=== PATIENT | female | born 1980 | race Caucasian/White ===

== ENCOUNTER 2018-08-17 07:09 | Emergency (ER) | payer SELFPAY ==
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
[2018-08-17] MEDS ORDERED: HYDROCODONE/APAP 5/325 MG TAB ONE (08:51)
[2018-08-17] MEDS ORDERED: ACETAMINOPHEN 500 MG TAB ONE (08:54)
[2018-08-17 09:56] LABS: Urine Blood 1+ (NEG); Urine Glucose NEGATIVE (NEG); Urine Protein NEGATIVE (NEG); Urine Specific Gravity 1.015 (1.005-1.030); Urine pH 6.5 (5.0-7.0)
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
== END 2018-08-17 11:15 | disposition home or self-care (01) ==
LOC: ER 07:09
DX: M54.9 Dorsalgia, unspecified (principal); M54.2 Cervicalgia; V49.49XA Driver injured in collision with other motor vehicles in traffic accident, initial encounter; I10 Essential (primary) hypertension
CPT/HCPCS: 36415; 70450; 71260; 72125; 74177; 81003; 81025; 99285; Q9967

== ENCOUNTER 2022-04-07 13:30 | Emergency (ER) | payer OTHER ==
[2022-04-07 14:58] LABS: SARS-COV-2 RT PCR NEGATIVE (NEGATIVE)
--- NOTE | 2022-04-07 15:47 | RAD REPORT ---
EXAM DESCRIPTION: Alex Single View04/07/2022 2:34 pm CLINICAL HISTORY: Congestion COMPARISON: 2014 FINDINGS: The lungs appear clear of acute infiltrate. The heart is normal size IMPRESSION: No acute abnormalities displayed
[2022-04-07] MEDS ORDERED: METHYLPREDNISOLONE 125 MG INJ ONE (15:54)
--- NOTE | 2022-04-07 15:54 | EDPHYS ---
Physician Documentation [facility] Name: Sharon Schafer Age: 41 yrs Sex: Female : 1980 Arrival Date: 04/07/2022 Time: 13:31 Bed 12 Private MD: ED Physician Austin Murillo HPI: 04/07 15:53 This 41 yrs old Female presents to ER via Ambulatory with complaints of Cough, kb Fever, Congestion, Chest Pain, Back Pain. 15:53 The patient or guardian reports cough, that is intermittent, described as moderate, flu kb symptoms, low-grade fever, myalgias. Onset: The symptoms/episode began/occurred 5 day(s) ago. Severity of symptoms: At their worst the symptoms were moderate, in the emergency department the symptoms are unchanged. Modifying factors: The symptoms are alleviated by nothing, the symptoms are aggravated by nothing. Associated signs and symptoms: Pertinent positives: fever, rhinorrhea, Pertinent negatives: chest pain, diarrhea, ear ache, nausea, vomiting. The patient has not experienced similar symptoms in the past. The patient has not recently seen a physician. Pt reports cough, congestion, fever since . 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 - Social history:: Smoking status: Patient denies any tobacco usage or history of. ROS: 15:51 Cardiovascular: Negative for chest pain, palpitations, and edema. kb 15:51 Constitutional: Positive for body aches, chills, fatigue, fever, malaise. 15:51 ENT: Positive for rhinorrhea, sinus congestion. 15:51 Respiratory: Positive for cough. 15:51 All other systems are negative. Exam: 15:51 Constitutional: This is a well developed, well nourished patient who is awake, alert, kb and in no acute distress. Head/Face: Normocephalic, atraumatic. ENT: Moist Mucous membranes Cardiovascular: Regular rate and rhythm with a normal S1 and S2. No gallops, murmurs, or rubs. No pulse deficits. Respiratory: Respirations even and unlabored. No increased work of breathing. Talking in full sentences Abdomen/GI: Soft, non-tender. No distention Skin: Warm, dry with normal turgor. Normal color. MS/ Extremity: Pulses equal, no cyanosis. Neurovascular intact. Full, normal range of motion. Neuro: Awake and alert, GCS 15, oriented to person, place, time, and situation. Moves all extremities. Normal gait. Psych: Awake, alert, with orientation to person, place and time. Behavior, mood, and affect are within normal limits. Vital Signs: 14:01 BP 139 / 94; Pulse 105; Resp 17; Temp 99.2; Pulse Ox 96% ; Weight 93.89 kg; Height 5 jl7 ft. 1 in. (154.94 cm); Pain 8/10; 16:02 BP 134 / 88; Pulse 101; Pulse Ox 97% on R/A; ko1 14:01 Body Mass Index 39.11 (93.89 kg, 154.94 cm) jl7 MDM: 15:02 Patient medically screened. kb 15:51 Data reviewed: vital signs, nurses notes. Data interpreted: Pulse oximetry: on room air kb is 96 %. Interpretation: normal. Counseling: I had a detailed discussion with the patient and/or guardian regarding: the historical points, exam findings, and any diagnostic results supporting the discharge/admit diagnosis, lab results, radiology results, the need for outpatient follow up, a family practitioner, to return to the emergency department if symptoms worsen or persist or if there are any questions or concerns that arise at home. 04/07 14:01 Order name: COVID-19/FLU A+B; Complete Time: 15:00 jl7 04/07 14:01 Order name: XRAY Chest (1 view); Complete Time: 15:51 jl7 Administered Medications: 15:56 Drug: SOLU-Medrol (methylPREDNISolone sodium succinate) 125 mg Route: IM; Site: right ko1 gluteus; 16:23 Follow up: Response: No adverse reaction ko1 Disposition: 17:14 Co-signature as Attending Physician, Austin Murillo MD I agree with the assessment and kdr plan of care. Disposition Summary: 04/07/22 15:54 Discharge Ordered Location: Home kb Condition: Stable kb Diagnosis - Acute upper respiratory infection, unspecified kb Followup: kb - With: Emergency Department - When: As needed - Reason: Worsening of condition Followup: kb - With: Private Physician - When: 2 - 3 days - Reason: Recheck today's complaints, Continuance of care, Re-evaluation by your physician Discharge Instructions: - Discharge Summary Sheet kb - Upper Respiratory Infection, Adult, [id number] kb - Viral Respiratory Infection, [id number] kb Forms: - Medication Reconciliation Form kb - Thank You Letter kb - Antibiotic Education kb - Prescription Opioid Use kb Prescriptions: - Prednisone 20 mg Oral Tablet - take 1 tablet by ORAL route once daily for 5 days; 5 tablet; Refills: 0, kb Product Selection Permitted - Tessalon Perles 100 mg Oral Capsule - take 1 capsule by ORAL route every 8 hours As needed; 15 capsule; Refills: 0, kb Product Selection Permitted Signatures: Dispatcher [employer] EDMS Rebecca Mcdermott, DYE AUTOMATION OPERATOR-C DYE AUTOMATION OPERATOR-Ckb Austin Murillo MD MD kdr Leal, Jahala RN RN jl7 Sugey Fermin, DESTINEY RN ko1 Corrections: (The following items were deleted from the chart) 15:54 15:54 Acute sinusitis, unspecified kb kb
--- NOTE | 2022-04-07 15:54 | ER ---
Nurse's Notes [facility] Name: Sharon Schafer Age: 41 yrs Sex: Female : 1980 Arrival Date: 04/07/2022 Time: 13:31 Bed 12 Private MD: Diagnosis: Acute upper respiratory infection, unspecified Presentation: 04/07 14:00 Chief complaint: Chief complaint: Patient states: cough, congestion, chills since jl7 . 14:01 Coronavirus screen: cough unrelated to allergies, Client presents with at least one [facility] sign or symptom that may indicate coronavirus-19. Ebola Screen: No symptoms or risks identified at this time. Initial Sepsis Screen: Does the patient meet any 2 criteria? No. Patient's initial sepsis screen is negative. Does the patient have a suspected source of infection? No. Patient's initial sepsis screen is negative. Risk Assessment: Do you want to hurt yourself or someone else? Patient reports no desire to harm self or others. Onset of symptoms was April 03, 2022. 14:01 Method Of Arrival: Ambulatory [facility] 14:01 Acuity: CASSANDRA 4 jl7 Triage Assessment: 14:02 General: Appears in no apparent distress. uncomfortable, Behavior is calm, cooperative, jl7 appropriate for age. Pain: Complains of pain in from coughing. Respiratory: no audible wheezes. 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 - Social history:: Smoking status: Patient denies any tobacco usage or history of. Screenin:02 Abuse screen: Denies threats or abuse. Denies injuries from another. Nutritional ko1 screening: No deficits noted. Tuberculosis screening: No symptoms or risk factors identified. Fall Risk None identified. Assessment: 16:02 General: Appears in no apparent distress. comfortable, Behavior is calm, cooperative, ko1 appropriate for age. Pain: Denies pain. Neuro: No deficits noted. Cardiovascular: Patient's skin is warm and dry. Respiratory: Airway is patent Trachea midline Respiratory effort is even, unlabored, Respiratory pattern is regular, symmetrical, Sputum is. GI: No deficits noted. : No deficits noted. EENT: No deficits noted. Derm: No deficits noted. Musculoskeletal: No deficits noted. Vital Signs: 14:01 BP 139 / 94; Pulse 105; Resp 17; Temp 99.2; Pulse Ox 96% ; Weight 93.89 kg; Height 5 jl7 ft. 1 in. (154.94 cm); Pain 8/10; 16:02 BP 134 / 88; Pulse 101; Pulse Ox 97% on R/A; ko1 14:01 Body Mass Index 39.11 (93.89 kg, 154.94 cm) jl7 ED Course: 13:31 Patient arrived in ED. as 13:33 Rebecca Mcdermott [facility]NP-C [facility] kb 13:33 Austin Murillo MD is Attending Physician. kb 14:02 Triage completed. jl7 14:02 Arm band placed on right wrist. jl7 14:04 COVID swab sent to lab. Flu and/or RSV swab sent to lab. jl7 14:36 XRAY Chest (1 view) In Process Unspecified. EDMS 15:51 Sugey Fermin, RN is Primary Nurse. ko1 16:02 Patient has correct armband on for positive identification. Bed in low position. Call ko1 light in reach. Side rails up X 1. NIBP on. 16:02 No provider procedures requiring assistance completed. Patient did not have IV access ko1 during this emergency room visit. Administered Medications: 15:56 Drug: SOLU-Medrol (methylPREDNISolone sodium succinate) 125 mg Route: IM; Site: right ko1 gluteus; 16:23 Follow up: Response: No adverse reaction ko1 Medication: 16:02 VIS not applicable for this client. ko1 Outcome: 15:54 Discharge ordered by . kb 16:23 Discharged to home ambulatory. ko1 16:23 Condition: good 16:23 Discharge instructions given to patient, Instructed on discharge instructions, follow up and referral plans. medication usage, Demonstrated understanding of instructions, follow-up care, medications, Prescriptions given X 2. 16:23 Patient left the ED. ko1 Signatures: Dispatcher [employer] EDMS Rebecca Mcdermott FNP-C P[employer] ALIGNER-Maria Elena Bravo as Cal Issa RN RN jl7 Sugey Fermin RN RN ko1 Corrections: (The following items were deleted from the chart) 14:02 14:00 Chief complaint: karuna beckman
[2022-04-07 17:03] VITALS: TEMP 99.2
[2022-04-07 17:08] VITALS: BP 134/88; O2SAT 97
== END 2022-04-07 16:23 | disposition home or self-care (01) ==
LOC: ER 13:30
DX: J06.9 Acute upper respiratory infection, unspecified (principal); Z20.822 Contact with and (suspected) exposure to COVID-19; I10 Essential (primary) hypertension
CPT/HCPCS: 0240U; 71045; 96372; 99284; J2930